=== PATIENT | male | born 1990 | race Caucasian/White ===

== ENCOUNTER 2017-01-13 15:38 | Emergency (ER) | payer SELFPAY ==
[~2017-01-13] VITALS: Ht 175.3 cm; Wt 72.6 kg
[2017-01-13 15:50] VITALS: BP 109/67
== END 2017-01-13 16:15 | disposition left against medical advice (07) ==
LOC: ER 15:38
DX: Z53.29 Procedure and treatment not carried out because of patient's decision for other reasons (principal)